=== PATIENT | male | born 1965 | race Caucasian/White ===

== ENCOUNTER → 2017-11-02 11:17 | Outpatient (CLI) | payer OTHER, SELFPAY ==
[2017-11-06 20:13] LABS: DHEA Sulfate 218.2 ug/dL (71.6-375.4); Testosterone, % Free 4.59 % (1.50-4.20); Testosterone, Free 64.17 ng/dL (5.00-21.00)
[2017-11-07 13:15] LABS: Insulin Like Growth Factor 170 ng/mL (61-200); Testosterone, Total 1398 ng/dL (264-916)
== END ==
DX: E29.1 Testicular hypofunction (principal)
CPT/HCPCS: 82627; 84305; 84402; 84403; 82626

== ENCOUNTER → 2018-01-02 13:56 | Outpatient (CLI) | payer OTHER, SELFPAY ==
[2018-01-06 13:51] LABS: Testosterone, Total 231 ng/dL (264-916)
== END ==
PROVIDERS: Referring Provider Family Medicine; Visit Provider Family Medicine
DX: E29.1 Testicular hypofunction (principal)
CPT/HCPCS: 84402; 84403